=== PATIENT | male | born 1965 | race Caucasian/White ===

== ENCOUNTER 2016-05-16 10:49 | Emergency (ER) | payer MEDICARE, MEDICAID ==
--- NOTE | 2016-05-16 11:25 | UC ---
UC General HPI - HPI Summary HPI Summary: The patient comes in today for: 1. Diarrhea, vomiting, headache, dizziness (near syncope): Onset: yesterday. Palliative/provocative: Nothing makes his symptoms better or worse. Quality: Headache; dull ache. Region: Forehead. Severity: 9/10 Time: Constant. Associated symptoms: Fevers: NO temperature taken. Vomiting: Black--coffee ground Diarrhea: Black. Urination: Normal. Abdominal pain: Present. * - History of Current Complaint Chief Complaint: UCGeneralIllness Stated Complaint: FLU SYMPTOMS Time Seen by Provider: 05/16/16 11:18 Hx Obtained From: Patient - Allergy/Home Medications Allergies/Adverse Reactions: Allergies Allergy/AdvReac Type Severity Reaction Status Date / Time Penicillins Allergy Intermediate Hives Verified 05/16/16 11:07 Mustard Allergy Hives Uncoded 05/16/16 11:07 Home Medications: Home Medications Atorvastatin* [Lipitor*] 40 mg PO DAILY 05/16/16 [History Confirmed 05/16/16] Esomeprazole(NF) [NexIUM(NF)] 40 mg PO DAILY 05/16/16 [History Confirmed ] Lisinopril TAB* [Prinivil TAB*] 5 mg PO DAILY 05/16/16 [History Confirmed ] Tizanidine HCl [Zanaflex] 2 - 4 mg PO Q8H PRN 05/16/16 [History Confirmed ] PMH/Surg Hx/FS Hx/Imm Hx Previously Healthy: No - Cerebral palsy. Endocrine History Of: Denies: Diabetes, Thyroid Disease, Hyperthyroidism, Hypothyroidism, Dyslipidemia Cardiovascular History Of: Reports: Hypertension Denies: Cardiac Disorders, Pacemaker/ICD, Myocardial Infarction, Congestive Heart Failure, Atrial Fibrillation, Deep Vein Thrombosis, Bleeding Disorders Respiratory History Of: Denies: COPD, Asthma, Bronchitis, Pneumonia, Pulmonary Embolism GI/ History Of: Reports: Gastroesophageal Reflux Denies: Ulcer, Gastrointestinal Bleed, Gall Bladder Disease, Kidney Stones, Diverticulitis, Renal Disease, Urosepsis Neurological History Of: Denies: TIA, CVA, Dementia, Seizures, Migraine Psychological History Of: Denies: Anxiety, Depression, Bipolar Disorder, Schizophrenia, Post Traumatic Stress Disorder Cancer History Of: Denies: Lung Cancer, Colorectal Cancer, Breast Cancer, Prostate Cancer, Cervical Cancer Other History Of: Negative For: HIV, Hepatitis B, Hepatitis C, Anticoagulant Therapy - Surgical History Surgical History: Yes Surgery Procedure, Year, and Place: NECK SURGERY - Family History Known Family History: Positive: Cardiac Disease, Hypertension, Seizure Disorder - Social History Occupation: Unemployed Alcohol Use: None Substance Use Type: None Smoking Status (MU): Never Smoked Tobacco - Immunization History Most Recent Influenza Vaccination: February 2016 Review of Systems Constitutional: Negative Skin: Negative Eyes: Negative ENT: Negative Respiratory: Cough Cardiovascular: Negative Gastrointestinal: Abdominal Pain, Vomiting, Diarrhea Genitourinary: Dysuria Neurological: Headache All Other Systems Reviewed And Are Negative: Yes Physical Exam Triage Information Reviewed: Yes Appearance: Well-Appearing, No Pain Distress, Well-Nourished Vital Signs: Initial Vital Signs Temp 98.1 F 05/16/16 11:03 Pulse 132 05/16/16 11:03 Resp 20 05/16/16 11:03 BP 125/105 05/16/16 11:03 Pulse Ox 98 05/16/16 11:03 Pulse after resting in the room: 88 Vital Signs Reviewed: Yes Eyes: Positive: Conjunctiva Clear. Negative: Discharge ENT: Positive: Hearing grossly normal, Other: - Ears: His left ear had a hearing aid in place. The right ear has cerumen.. Negative: Pharyngeal erythema, Nasal congestion, Nasal drainage, Tonsillar swelling, Tonsillar exudate Dental: Negative: Gross Decay/Caries @, Dental Fracture @ Neck: Positive: Supple, Nontender, No Lymphadenopathy. Negative: Nuchal Rigidity Respiratory: Positive: Chest non-tender, Lungs clear, No respiratory distress, No accessory muscle use. Negative: Crackles, Wheezing Cardiovascular: Positive: RRR, No Murmur Abdomen Description: Positive: No Organomegaly, Soft. Negative: Nontender - There is diffuse tenderness to palpation of his lower abdomen. NO masses. NO guarding., Guarding Musculoskeletal: Positive: Strength Intact, ROM Intact, Other: - The patient has cerebral palsy. Neurological: Positive: Alert, Muscle Tone Normal Psychological: Positive: Age Appropriate Behavior, Consolable Skin: Negative: rashes, breakdown Re-Evaluation - Re-Evaluation First Eval Comment: BP: 163/119. P 88-90 Course/Dx - Course Course Of Treatment: Patient was encouraged to go to ER for further evaluation. He agrees. - Differential Dx - Multi-Symptom Provider Diagnoses: Abdominal pain with history of possible hematemesis, hematochezia. - Physician Notifications Discussed Patient Care With: Juana Metz Time Discussed With Above Provider: 12:09 Discharge - Discharge Plan Condition: Stable Disposition: HOME Additional Instructions: Patient going to [facility] via ambulance.
[2016-05-16 11:43] VITALS: BP 163/119
== END 2016-05-16 12:27 | disposition short-term general hospital (02) ==
LOC: UCCORT 10:49
DX: R10.9 Unspecified abdominal pain (principal); K92.1 Melena; R11.11 Vomiting without nausea; R19.7 Diarrhea, unspecified; R51 Headache; G80.9 Cerebral palsy, unspecified; H61.21 Impacted cerumen, right ear; H90.A22 Sensorineural hearing loss, unilateral, left ear, with restricted hearing on the contralateral side; J91.8 Pleural effusion in other conditions classified elsewhere
CPT/HCPCS: 99213; G0463

== ENCOUNTER 2016-08-05 12:58 | Emergency (ER) | payer MEDICARE, MEDICAID ==
[2016-08-05 13:50] VITALS: BP 114/86
--- NOTE | 2016-08-05 14:06 | UC ---
Eye Complaint HPI - HPI Summary HPI Summary: BILATERAL EYE IRRITATION X 2 DAYS + REDNESS, DISCHARGE, NO EYE PAIN , NO CHANGE IN VISION - History of Current Complaint Chief Complaint: UCEye Stated Complaint: BILATERAL EYE COMPLAINT Time Seen by Provider: 08/05/16 13:58 Hx Obtained From: Patient Onset/Duration: Gradual Onset, Lasting Days - 2, Still Present Timing: Constant Severity Initially: Moderate Severity Currently: Moderate Location of Injury: Conjunctiva Aggravating Factor(s): Nothing Alleviating Factor(s): Nothing Associated Signs And Symptoms: Positive: Drainage (Clear), Drainage (Purulent). Negative: Photophobia, Vision Impairment Bilateral, Vision Impairment Right, Vision Impairment Left, Fever, Swelling - Allergies/Home Medications Allergies/Adverse Reactions: Allergies Allergy/AdvReac Type Severity Reaction Status Date / Time Penicillins Allergy Intermediate Hives Verified 08/05/16 13:50 Mustard Allergy Hives Uncoded 08/05/16 13:50 PMH/Surg Hx/FS Hx/Imm Hx Endocrine History Of: Denies: Diabetes, Thyroid Disease, Hyperthyroidism, Hypothyroidism, Dyslipidemia Cardiovascular History Of: Reports: Hypertension Denies: Cardiac Disorders, Pacemaker/ICD, Myocardial Infarction, Congestive Heart Failure, Atrial Fibrillation, Deep Vein Thrombosis, Bleeding Disorders Respiratory History Of: Denies: COPD, Asthma, Bronchitis, Pneumonia, Pulmonary Embolism GI/ History Of: Reports: Gastroesophageal Reflux Denies: Ulcer, Gastrointestinal Bleed, Gall Bladder Disease, Kidney Stones, Diverticulitis, Renal Disease, Urosepsis Neurological History Of: Denies: TIA, CVA, Dementia, Seizures, Migraine Psychological History Of: Denies: Anxiety, Depression, Bipolar Disorder, Schizophrenia, Post Traumatic Stress Disorder Cancer History Of: Denies: Lung Cancer, Colorectal Cancer, Breast Cancer, Prostate Cancer, Cervical Cancer Other History Of: Negative For: HIV, Hepatitis B, Hepatitis C, Anticoagulant Therapy - Surgical History Surgical History: Yes Surgery Procedure, Year, and Place: NECK SURGERY - Family History Known Family History: Positive: Cardiac Disease, Hypertension, Seizure Disorder - Social History Alcohol Use: None Substance Use Type: None Smoking Status (MU): Never Smoked Tobacco - Immunization History Most Recent Influenza Vaccination: February 2016 Review of Systems Constitutional: Negative Skin: Negative Eyes: Drainage, Eye Redness ENT: Negative Respiratory: Negative Cardiovascular: Negative All Other Systems Reviewed And Are Negative: Yes Physical Exam Triage Information Reviewed: Yes Appearance: No Pain Distress Vital Signs: Initial Vital Signs Temp 98.9 F 08/05/16 13:42 Pulse 65 08/05/16 13:42 Resp 20 08/05/16 13:42 BP 114/86 08/05/16 13:42 Vital Signs Reviewed: Yes Eye Exam: Normal Eyes: Positive: Conjunctiva Inflamed - BILATERAL, Discharge - CLEAR DISCHARGE ENT: Positive: Normal ENT inspection, Hearing grossly normal, Pharynx normal Neck exam: Normal Neck: Positive: Supple, Nontender, No Lymphadenopathy Respiratory: Positive: Chest non-tender, Lungs clear, Normal breath sounds Cardiovascular: Positive: RRR, No Murmur, Pulses Normal Eye Complaint Course/Dx - Differential Dx/Diagnosis Provider Diagnoses: CONJUNCTIVITIS Discharge - Discharge Plan Condition: Stable Disposition: HOME Prescriptions: Tobramycin/Dexameth OPTH.SUSP* [Tobradex 0.3-0.1%*] 1 drop BOTH EYES Q4H #1 btl Patient Education Materials: Conjunctivitis (ED) Referrals: Adrienne Wren MD [Primary Care Provider] - 7 Days
== END 2016-08-05 14:15 | disposition home or self-care (01) ==
LOC: UCCORT 12:58
DX: H10.33 Unspecified acute conjunctivitis, bilateral (principal); Z88.0 Allergy status to penicillin; I10 Essential (primary) hypertension; K21.9 Gastro-esophageal reflux disease without esophagitis
CPT/HCPCS: 99212; G0463

== ENCOUNTER 2017-01-06 11:50 | Emergency (ER) | payer MEDICARE, MEDICAID ==
[2017-01-06 12:06] VITALS: BP 157/95
--- NOTE | 2017-01-06 12:25 | UC ---
Lower Extremity/Ankle HPI - HPI Summary HPI Summary: bilateral swollen legs / feet x 2 months no known injury , no calf pain , no sob , no cough , no chest pain no urinary sx. also c/o nasal congestion, pnd, sinus pressure x 1 day - History of Current Complaint Chief Complaint: UCGeneralIllness Stated Complaint: BILATERAL FOOT COMPLAINT/SORE THROAT SINUS Time Seen by Provider: 01/06/17 11:58 Hx Obtained From: Patient Onset/Duration: Gradual Onset, Lasting Weeks - 8, Still Present Severity Initially: Moderate Severity Currently: Moderate Aggravating Factor(s): Standing, Ambulation Alleviating Factor(s): Rest Able to Bear Weight: Yes - Allergies/Home Medications Allergies/Adverse Reactions: Allergies Allergy/AdvReac Type Severity Reaction Status Date / Time Penicillins Allergy Intermediate Hives Verified 01/06/17 12:06 Mustard Allergy Hives Uncoded 01/06/17 12:06 Home Medications: Home Medications Rivaroxaban TAB(*) [Xarelto 20 mg] 20 mg PO DAILY 01/06/17 [History Confirmed ] PMH/Surg Hx/FS Hx/Imm Hx Cardiovascular History: Hypertension Neurological History: Other - cp Other Neurological History: cp Other History Of: Negative For: HIV, Hepatitis B, Hepatitis C, Anticoagulant Therapy - Surgical History Surgical History: Yes Surgery Procedure, Year, and Place: NECK SURGERY - Family History Known Family History: Positive: Cardiac Disease, Hypertension, Seizure Disorder - Social History Alcohol Use: None Substance Use Type: None Smoking Status (MU): Never Smoked Tobacco - Immunization History Most Recent Influenza Vaccination: February 2016 Review of Systems Constitutional: Negative Skin: Negative ENT: Nasal Discharge, Sinus Congestion Respiratory: Negative Cardiovascular: Negative Gastrointestinal: Negative Is Patient Immunocompromised?: No All Other Systems Reviewed And Are Negative: Yes Physical Exam Triage Information Reviewed: Yes Appearance: Well-Appearing, No Pain Distress, Well-Nourished Vital Signs: Initial Vital Signs Temp 99.1 F 01/06/17 12:00 Pulse 80 01/06/17 12:00 Resp 18 01/06/17 12:00 BP 157/95 01/06/17 12:00 Pulse Ox 98 01/06/17 12:00 Vital Signs Reviewed: Yes Eyes: Positive: Conjunctiva Clear ENT: Positive: Normal ENT inspection, Hearing grossly normal, Pharynx normal Neck: Positive: Supple, Nontender, No Lymphadenopathy Respiratory: Positive: Chest non-tender, Lungs clear, Normal breath sounds Cardiovascular: Positive: RRR, No Murmur, Pulses Normal Musculoskeletal Exam: Other - bilateral lower ext +2 edema UC Physical Exam Vital Signs On Initial Exam: Initial Vitals Temp Pulse Resp BP Pulse Ox 99.1 F 80 18 157/95 98 01/06/17 12:00 01/06/17 12:00 01/06/17 12:00 01/06/17 12:00 01/06/17 12:00 Lower Extremity Course/Dx - Differential Dx/Diagnosis Provider Diagnoses: lower ext edema. uri Discharge - Discharge Plan Condition: Stable Disposition: HOME Patient Education Materials: Upper Respiratory Infection (ED), Leg Edema (ED) Referrals: Adrienne Wren MD [Primary Care Provider] - 5 Days
[2017-01-06 19:13] LABS: Calcium 8.8 mg/dL (8.6-10.3); EGFR African American 101.3 (>60); EGFR Non-African American 78.8 (>60); Globulin 2.7 g/dL (2-4); Potassium 3.6 mmol/L (3.5-5.0); Total Bilirubin 0.5 mg/dL (0.2-1.0); Total Protein 6.7 g/dL (6.4-8.9)
== END 2017-01-06 12:30 | disposition home or self-care (01) ==
LOC: UCCORT 11:50
DX: J06.9 Acute upper respiratory infection, unspecified (principal); Z88.0 Allergy status to penicillin; R60.0 Localized edema
CPT/HCPCS: 36415; 80053; 99212; G0463